=== PATIENT | male | born 1940 | race Caucasian/White ===

== ENCOUNTER 2020-08-03 11:39 | Emergency (ER) | payer OTHER ==
[2020-08-03 11:44] VITALS: BP 139/69; PULSE 88; TEMP 99.1; BMI 36.3
[2020-08-03] MEDS ORDERED: ACETAMINOPHEN 325 MG TABLET (FP) PO ONE (12:57)
[2020-08-03] MEDS ORDERED: ACETAMINOPHEN 325 MG TABLET (FP) ONE (13:09)
== END 2020-08-03 13:18 | disposition home or self-care (01) ==
LOC: FER 11:39
DX: M54.5 Low back pain (principal)
CPT/HCPCS: 81003; 87086; 99283-25; C9803; U0003

== ENCOUNTER → 2021-12-05 | Day surgery (SDC) | payer OTHER ==
[2021-12-03 15:45] VITALS: BMI 32.2
[~2021-12-05] MED LIST: ACETAMINOPHEN 325 MG TABLET (FP) PO PRN; CYCLOPENTOLATE HCL 1% OPHTH SOLN 2 ML BOTTLE OP SCH; KETOROLAC TROMETHAMINE 0.5% EYE DROP 1 DROP DROPS OP SCH; OFLOXACIN 0.3% OPHTHALMIC SOLUTION 5 ML BOTTLE OP SCH; PHENYLEPHRINE 2.5% OPHTH SOLN 15 ML BOTTLE OP SCH; TROPICAMIDE 1% OPHTH SOLN 15 ML BOTTLE OP SCH
== END | disposition home or self-care (01) ==
LOC: JASU-SURG 04:42
PROVIDERS: ATTEND Ophthalmology
DX: Z53.8 Procedure and treatment not carried out for other reasons (principal)

== ENCOUNTER 2021-12-26 04:40 | Day surgery (SDC) | payer OTHER ==
[2021-12-24 18:10] VITALS: BMI 32.2
[2021-12-26] MEDS ORDERED: CHONDROITIN SU A/HYALUR SOD 1 KIT ONE (07:16)
[2021-12-26] MEDS ORDERED: TETRACAINE 0.5% OPHTH SOLN 2 ML BOTTLE ONE (07:35)
[2021-12-26] MEDS ORDERED: POVIDONE-IODINE 5% OPHTHALMIC PREP 30 ML SOLUTION ONE (07:35)
[2021-12-26] MEDS ORDERED: PHENYLEPHRINE 2.5% OPHTH SOLN 15 ML BOTTLE ONE (08:12)
[2021-12-26] MEDS ORDERED: TROPICAMIDE 1% OPHTH SOLN 15 ML BOTTLE ONE (08:12)
[2021-12-26] MEDS ORDERED: KETOROLAC TROMETHAMINE 0.5% EYE DROP 1 DROP DROPS ONE (08:12)
[2021-12-26] MEDS ORDERED: CYCLOPENTOLATE HCL 1% OPHTH SOLN 2 ML BOTTLE ONE (08:12)
[2021-12-26] MEDS ORDERED: OFLOXACIN 0.3% OPHTHALMIC SOLUTION 5 ML BOTTLE ONE (08:13)
[2021-12-26] MEDS ORDERED: KETOROLAC TROMETHAMINE 0.5% EYE DROP 1 DROP DROPS OD ONE ×3 (08:20→08:30)
[2021-12-26] MEDS ORDERED: PHENYLEPHRINE 2.5% OPTHALMIC DROP BOTTLE OD ONE ×3 (08:20→08:30)
[2021-12-26] MEDS ORDERED: TROPICAMIDE 1% OPHTH SOLN 15 ML BOTTLE OD ONE ×3 (08:20→08:30)
[2021-12-26] MEDS ORDERED: OFLOXACIN 0.3% OPHTHALMIC SOLUTION 5 ML BOTTLE OD ONE ×3 (08:20→08:30)
[2021-12-26] MEDS ORDERED: CYCLOPENTOLATE HCL 1% OPHTH SOLN 2 ML BOTTLE OD ONE ×3 (08:20→08:30)
[2021-12-26] MEDS ORDERED: TRYPAN BLUE 0.5 ML DISP.SYRIN ONE (10:20)
[2021-12-26] MEDS ORDERED: MIDAZOLAM HCL 2 MG/2 ML SINGLE DOSE VIAL ONE (10:23)
[2021-12-26] MEDS ORDERED: TETRACAINE 0.5% OPHTH SOLN 2 ML BOTTLE OD ONE (10:33)
[2021-12-26] MEDS ORDERED: POVIDONE-IODINE 5% OPHTHALMIC PREP 30 ML SOLUTION OD ONE (10:34)
[2021-12-26] MEDS ORDERED: BSS (NA/CA/MG/K) BALANCED SALT SOLUTION OPHTH SOLN 15 ML BOTTLE OD ONE (10:40)
[2021-12-26] MEDS ORDERED: LIDOCAINE HCL 1% PRESERVATIVE FREE - 30ML VIAL IO ONE (10:41)
[2021-12-26] MEDS ORDERED: CHONDROITIN SU A/HYALUR SOD 1 KIT IO ONE (10:41)
[2021-12-26] MEDS ORDERED: EPINEPHrine/PF 1 MG/1 ML (1:1,000) AMPULE SQ ONE (10:46)
[2021-12-26 16:46] VITALS: BP 124/69; PULSE 79; TEMP 97.9
== END 2021-12-26 11:52 | disposition home or self-care (01) ==
LOC: JASU-SURG 04:40
PROVIDERS: ATTEND Ophthalmology
PROC: 08RJ3JZ Replacement of Right Lens with Synthetic Substitute, Percutaneous Approach (ICD-10-PCS; principal; 2021-12-26 10:00)
DX: H26.9 Unspecified cataract (principal)
CPT/HCPCS: 82962